=== PATIENT | male | born 1970 | race Asian ===

== ENCOUNTER 2021-10-16 17:43 | Emergency (ER) | payer BC ==
[~2021-10-16] VITALS: Ht 167.6 cm; Wt 79.4 kg
[2021-10-16 18:14] VITALS: BP_SYST 132
--- NOTE | 2021-10-16 19:25 | NUR ---
Patient to ER bed H3 to gown for evaluation. Side rails up. Report given to Katlin STONER.
--- NOTE | 2021-10-16 20:15 | NUR ---
JACK WRIGHT Kwaw at bedside.
--- NOTE | 2021-10-16 20:27 | NUR ---
Patient A/Ox3, VSS, ambulatory, resp even and unlabored. Patient c/o abd pain x1 day, denies N/V. Patient reports pain 3/10 in lower abd. Patient denies TTP on abd. Patient reports hx of DM. Nad noted at this time.
--- NOTE | 2021-10-16 20:55 | NUR ---
Patient sitting upright in chair comfortably. Nad noted at this time.
[2021-10-16 20:57] VITALS: BP_SYST 132
[2021-10-16 20:57] LABS: BILIRUBIN,URINE NEGATIVE (NEGATIVE); BLOOD, URINE NEGATIVE (NEGATIVE); CLARITY/URINE CLEAR (CLEAR); COLOR,URINE YELLOW (YELLOW); GLUCOSE,URINE 3+ (NEGATIVE); KETONES,URINE TRACE (NEGATIVE); LEUKOCYTE ESTERASE ,URINE NEGATIVE (NEGATIVE); NITRITE, URINE NEGATIVE (NEGATIVE); PROTEIN URINE NEGATIVE (NEGATIVE)
--- NOTE | 2021-10-16 20:57 | NUR ---
Patient given written and verbal discharge instructions and verbalizes understanding. ER MD discussed with patient the results and treatment provided. Patient in stable condition. ID arm band removed. Patient educated on pain management and to follow up with PMD. Pain Scale 2/10. Opportunity for questions provided and answered. Patient A/Ox4, VSS, ambulatory, resp even and unlabored. Nad noted at this time.
[2021-10-16 21:27] LABS: BASOPHILS % (AUTO) 0.1 % (0.0-2.0); EOSINOPHILS # (AUTO) 0.2 K/uL (0.0-0.4); EOSINOPHILS % (AUTO) 1.9 % (0.0-4.0); HEMATOCRIT 47.7 % (36-54); HEMOGLOBIN 16.5 g/dL (14.0-18.0); LYMPHOCYTES # (AUTO) 1.5 K/uL (1.0-5.5); MEAN CORPUSCULAR HEMOGLOBIN 30 pg (27-31); MEAN CORPUSCULAR HGB CONC 35 % (32-36); MEAN CORPUSCULAR VOLUME 86 fL (79.0-98.0); MONOCYTES # (AUTO) 0.8 K/uL (0.0-1.0); MONOCYTES % (AUTO) 6.4 % (1.7-9.3); NEUTROPHILS # (AUTO) 9.8 K/uL (1.8-7.7); NEUTROPHILS % (AUTO) 79.6 % (40.0-70.0); PLATELET COUNT (AUTO) 167 K/uL (130-430); RED BLOOD CELL COUNT(AUTO) 5.55 MIL/uL (4.2-6.2); RED CELL DISTRIBUTION WIDTH 13.8 % (9.0-15.0); WHITE BLOOD COUNT (AUTO) 12.3 K/uL (4.8-10.8)
[2021-10-16 21:56] LABS: CALCIUM 9.5 mg/dL (8.4-11.0); CREATININE 1.26 mg/dL (0.55-1.30); POTASSIUM 3.8 mmol/L (3.5-5.1)
[2021-10-16 22:05] LABS: TOTAL BILIRUBIN 2.2 mg/dL (0.0-1.0)
[2021-10-16 22:37] LABS: BACTERIA,URINE RARE /HPF (None Seen); RBC,URINE NONE SEEN /HPF (0-3); WBC,URINE 0-3 /HPF (0-3)
[2021-10-16 22:38] LABS: CALCIUM OXALATE CRYSTALS,UR 0-10 /HPF (None Seen); MUCUS,URINE None Seen /LPF (None Seen)
== END 2021-10-16 20:57 | disposition home or self-care (01) ==
LOC: SED 17:43
DX: B34.9 Viral infection, unspecified (principal); M25.522 Pain in left elbow; R10.84 Generalized abdominal pain; E11.9 Type 2 diabetes mellitus without complications; Z79.899 Other long term (current) drug therapy
CPT/HCPCS: 36415; 76376; 80053; 81000; 82962; 85025; 99284